=== PATIENT | male | born 1950 | race Caucasian/White ===

== ENCOUNTER → 2020-12-30 09:25 | Outpatient (CLI) | payer MEDICARE, SELFPAY ==
--- NOTE | ~2020-12-30 | XR_ITS ---
EXAMINATION: XR knee LT min 4V DATE: 12/30/2020 09:54 INDICATION: Left knee pain. TECHNIQUE: 4 views of left knee were obtained. COMPARISON: Left knee radiographs 05/02/2020 FINDINGS: There is varus attenuation at the knee. No fracture. There is severe osteoarthritis of medi al compartment and mild osteoarthritis of lateral and patellofemoral compartments. There is a moderat e-sized knee joint effusion. A calcification posterior to the knee is likely a loose body in a Sanchez' s cyst. IMPRESSION: 1. Severe left knee osteoarthritis. 2. Moderate-sized left knee joint effusion. Reviewed, dictated and finalized at location A.
== END ==
PROVIDERS: Visit Provider Nurse Practitioner Adult Health
DX: M17.12 Unilateral primary osteoarthritis, left knee (principal); M25.462 Effusion, left knee
CPT/HCPCS: 73564

== ENCOUNTER 2021-10-15 07:41 | Outpatient (CLI) | payer MEDICARE, SELFPAY ==
--- NOTE | ~2021-10-15 | US_ITS ---
EXAMINATION: US art doppler w press LE BI DATE: 10/15/2021 08:52 INDICATION: Peripheral vascular disease with risk factors of diabetes and and hypercholesterolemia wi th prior strokes and coronary artery disease. TECHNIQUE: Segmental pressures and plethysmographic and Doppler waveforms of the brachial and lower e xtremity arteries were obtained. COMPARISON: None. FINDINGS: Right and left brachial artery pressures of 131 mm Hg and 132 mm Hg, respectively, are concordant (no rmal difference <= 30 mmHg). The right and left high-thigh pressure indices are 1.28 and 1.26, respec tively (normal > 1.2). The right ankle-brachial index (BREANA) is 1.04 (normal >= 0.9-1). The right great toe-brachial index (T BI) is 0.83 (normal >= 0.6-0.8). The right lower extremity segmental pressure gradients are normal (n ormal gradients <= 20-30 mmHg between adjacent levels on the same leg or the same levels on the two l egs). Arterial waveforms are biphasic with brisk systolic upstrokes throughout the arteries of the ri ght lower limb. Cardiac arrhythmia is present. The left BREANA is 0.98. The left TBI is 0.71. The left lower extremity segmental pressure gradients are increased between the arteries at the left ankle and the left epgrd-gks-azip popliteal artery. Arter ial waveforms are biphasic with brisk systolic upstrokes throughout the arteries of the left lower li mb. IMPRESSION: 1. Normal BREANA's and TBI's bilaterally. No significant occlusive disease. 2. Cardiac arrhythmia. Correlate with EKG. Reviewed, dictated and finalized at location B.
== END 2021-10-15 07:42 | disposition home or self-care (01) ==
PROVIDERS: PCP Internal Medicine; Visit Provider Orthopaedic Surgery
DX: I73.9 Peripheral vascular disease, unspecified (principal)
CPT/HCPCS: 93923

== ENCOUNTER 2021-11-12 09:51 | Outpatient (CLI) | payer MEDICARE, SELFPAY ==
[2021-11-12 11:57] LABS: Basophils Percent Auto 0.5 % (0.2-1.2); Eosinophils Absolute Auto 0.1 K/mm3 (0-0.3); Eosinophils Percent Auto 1.6 % (0-4.4); Hematocrit 43.4 % (42.0-52.0); Hemoglobin 14.3 g/dL (14.0-18.0); Immature Granulocyte Absolute 0.02 K/mm3 (0.00-0.031); Immature Granulocyte Percent A 0.2 % (0-0.5); Lymphocytes Absolute Auto 0.83 K/mm3 (0.9-3.2); Lymphocytes Percent Auto 9.5 % (18.3-44.2); Mean Corpuscular HGB Conc 32.9 g/dl (32-36); Mean Platelet Volume 10.3 fl (7.4-10.4); Monocytes Absolute Auto 0.5 K/mm3 (0.1-0.6); Monocytes Percent Auto 5.8 % (2.6-8.5); Neutrophils Absolute Auto 7.2 K/mm3 (1.3-6.7); Neutrophils Percent Auto 82.4 % (45.5-73.1); Platelet Count Result 167 k/mm3 (150-375); Red Blood Count 4.93 M/mm3 (4.6-6.20); Red Cell Distribution Width 14.6 % (11.5-14.5); White Blood Count 8.7 K/mm3 (4.5-10.0)
[2021-11-12 12:00] LABS: Appearance Urine Clear (Clear); Bilirubin Urine Negative (Negative); Blood Urine Negative (Negative); Color Urine Yellow (Yellow); Glucose Urine UA Negative (Negative); Ketones Urine Negative (Negative); Leukocyte Esterase Ur Negative LEU/UL (Negative); Nitrate Urine Negative (Negative); Protein Urine Negative (Negative); Specific Grav Ur 1.015 (1.001-1.035); Urobilinogen Urine 0.2 mg/dL (<2.0)
[2021-11-12 12:05] LABS: Albumin Level 4.5 g/dL (3.5-5.1); Anion Gap 6 mmol/L (8-16); Blood Urea Nitrogen 14 mg/dL (9-20); Calcium 9.1 mg/dL (8.4-10.2); Carbon Dioxide 29 mmol/L (22-30); Chloride 104 mmol/L (98-107); Estimated Glomerular Filt Rate > 60; Glucose 94 mg/dL (65-110); INR 1.1; Potassium 4.3 mmol/L (3.4-5.0); Prothrombin Time 13.9 Seconds (11.1-14.7); Sodium 139 mmol/L (137-145)
[2021-11-12 12:06] LABS: Add Urine Microscopic? NO
[2021-11-12 12:06] LABS: Partial Thromboplastin Time 34.1 SECONDS (22.3-36.8)
[2021-11-12 12:07] LABS: Hemoglobin A1C 5.4 % (<5.7)
[2021-11-12 12:07] LABS: Urine Cotinine NEGATIVE
== END 2021-11-12 09:52 | disposition home or self-care (01) ==
LOC: ANHSURGERY 09:55
PROVIDERS: PCP Internal Medicine; Visit Provider Orthopaedic Surgery
DX: Z01.818 Encounter for other preprocedural examination (principal); M17.11 Unilateral primary osteoarthritis, right knee
CPT/HCPCS: 80048; 80307; 81003; 82040; 83036; 85025; 85610; 85730; 87081

== ENCOUNTER 2021-11-26 00:41 | Day surgery (SDC) | payer MEDICARE, SELFPAY ==
--- NOTE | 2021-11-12 10:00 | PC.NURSE ---
Report to the Outpatient Waiting Room, entrance under the green pavilion located off [facility], at time __9:00am__ on date ___11/26/21____. OR Time: _11:00AM . - You and your visitor will be asked a series of questions to screen for COVID 19 for your protection. - Only one visitor is allowed at this time. - The patient visitor is requested to leave or wait in car when not with patient. - A mask is required within the hospital. Patients may have clear liquids (water, carbonated beverages, clear teas, apple juice) until 3 hours prior to surgery with a maximum of 20 ounces. - No food from midnight until time of surgery Take the following medications with a SIP of water the morning of surgery: _AMLODIPINE, ISOSORBIDE & METOPROLOL Medications to discontinue per physician ___HOLD ASPIRIN -LAST DOSE , HOLD PLAVIX -LAST DOSE 11/21/21, HOLD ALL VITAMINS/SUPPLEMENTS 3 DAYS PRE-OP-LAST DOSE 10/23/21 Please no make-up, nail latvian, hairspray, perfume, deodorant, or body powder the day of surgery. No jewelry (including any body piercings) or valuables the day of surgery, leave them at home. Please take a shower or bath the night before, or the morning of, surgery with an antibacterial soap. Wear comfortable, loose fitting clothing. Children are encouraged to wear pajamas. - Jewelry must be removed prior to entering the operating room. Rings and piercings that are not removed may be cut off. - The hospital will not accept responsibility for valuables. - Please leave all valuables, including medications, at home the day of surgery. *HIBICLENS SHOWER PER DR MELARA'S INSTRUCTIONS* If you are going home after surgery, a licensed hydraulic lift driver must drive you home. - NO public transportation without another adult. - We recommend that an adult stay with you for 24 hours following discharge. - We also recommend that you do not drive, make important decision, drink alcoholic beverages, or take any drugs that were not prescribed by your health care provider for at least 24 hours after your discharge time. Follow any additional instructions given to you from your surgeon. If you or anyone in your household have experienced Covid symptoms in the past week, please notify your surgeon or the nurse liaison at the phone number below for possible testing. Telephone instructions given to __PATIENT and asked if any additional questions and then verbalized understanding. Patient advised to call surgeon office or pre surgery nurse liaison [phone] if any additional questions.
[2021-11-12 10:04] VITALS: BMI 39.4
[2021-11-12 10:25] VITALS: BP 125/85; PULSE 75; RESP 16; TEMP 37.2; O2SAT 98
--- NOTE | 2021-11-25 13:20 | WPDANESEPPF ---
Anes - Initial Pre Proc Eval Procedure: Operation Date: 11/26/21 11:00 Proposed Procedures p Right Total Knee Arthroplasty - Eugene Todd MD Date/Time: 11/25/21 13:20 Surgeon: Eugene Todd MD Pre Op Diagnosis: Rt Knee DJD Patient Data Age: 71 Gender: M Height: 1.68 m Weight: 111.5 kg Last Vital Signs Temp 37.2 C 11/12/21 10:25 Pulse 75 11/12/21 10:25 Resp 16 11/12/21 10:25 BP 125/85 11/12/21 10:25 Pulse Ox 98 11/12/21 10:25 O2 Del Method Room Air 11/12/21 10:25 Allergies Allergy/AdvReac Type Severity Reaction Status Date / Time No Known Allergies Allergy Mild Verified 11/26/21 09:07 Home Medications Medication Instructions Recorded Confirmed Type amlodipine 10 mg tablet 10 mg PO QAM 10/29/20 11/26/21 History aspirin 325 mg tablet 325 mg PO DAILY 10/29/20 11/26/21 History clopidogrel 75 mg tablet 75 mg PO DAILY 10/29/20 11/12/21 History dulaglutide 1.5 mg/0.5 mL 1.5 mg subcut WEEKLY 10/29/20 11/26/21 History subcutaneous pen injector (Trulicity) ergocalciferol (vitamin D2) 1,250 1,250 mcg PO WEEKLY 10/29/20 11/26/21 History mcg (50,000 unit) capsule furosemide 20 mg tablet 20 mg PO QAM 10/29/20 11/26/21 History glimepiride 4 mg tablet 2 mg PO QPM 10/29/20 11/26/21 History isosorbide mononitrate 60 mg 60 mg PO QAM 10/29/20 11/26/21 History tablet,extended release 24 hr losartan 100 mg tablet 100 mg PO QAM 10/29/20 11/26/21 History metoprolol succinate 100 mg 100 mg PO QAM 10/29/20 11/26/21 History tablet,extended release 24 hr multivitamin 1 tablet PO DAILY 10/29/20 11/26/21 History omeprazole 20 mg capsule,delayed 20 mg PO QAM 10/29/20 11/26/21 History release rosuvastatin 40 mg tablet 40 mg PO QAM 10/29/20 11/26/21 History icosapent ethyl 1 gram capsule 2 g PO BID 06/12/21 11/26/21 History vitamin B complex (B 1 tablet PO DAILY 06/12/21 11/26/21 History Complex-Vitamin B12 tablet) docusate sodium 100 mg capsule 100 mg PO TID 11/12/21 11/26/21 History (Stool Softener) vitamin E 268 mg (400 unit) capsule 400 unit PO DAILY 11/12/21 11/26/21 History Patient hx anesthesia problems: none Family hx anesthesia problems: none Results Review: All pre-operative results and documents have been reviewed as part of the pre-operative evaluation. [facility] Past Medical History Medical History (Updated 11/25/21 @ 13:26 by Yakov Gordon MD) Arterial insufficiency of lower extremity Arthritis CAD (coronary artery disease) CHF (congestive heart failure) Chronic narcotic use Constipation COPD (chronic obstructive pulmonary disease) Diabetes Diarrhea GERD (gastroesophageal reflux disease) Hearing loss Heart attack Hemoglobin A1C between 7% and 9% indicating borderline diabetic control September 2020 = 7.8 High cholesterol Hyperlipidemia Low back pain GRIFFIN on CPAP Pain in left knee Rheumatoid arthritis Sleep apnea Sleep disorder Ulcer Wears glasses Surgical History Surgical History History of bilateral hip replacements History of colon surgery History of heart artery stent History of shoulder surgery Dr. Prado History of spinal surgery Family History Family History Other Asthma Diabetes mellitus Hypertension Social History Social History Smoking packs per day: 2 Smoking cigarettes per day: 40.0 Years smoked: 40 Smoking pack-years: 80.00 Smoking status: Former smoker Tobacco type: cigarettes Smoking end date: 11/21/09 Alcohol intake: current Alcohol use details: 6 pk in a years time Substance use: never Living arrangements: alone Gender identity (if verbalized by the patient): Male Spiritual care concerns: No Anes - Eval Final PreProcedure Day of Procedure 11/25/21 13:20 Patient weight: obese Heart: regular rate and rhythm Lungs: clear t
[2021-11-26] VITALS (17 sets, daily range): BP systolic 102–146; BP diastolic 52–75; PULSE 50–106; RESP 14–18; TEMP 36.3–37.1; O2SAT 94–100
--- NOTE | ~2021-11-26 | XR_ITS ---
EXAMINATION: XR knee RT 2V DATE: 11/26/2021 13:05 INDICATION: Postoperative evaluation following right total knee arthroplasty. TECHNIQUE: Anteroposterior and lateral views of the right knee were obtained. COMPARISON: 10/02/2021 FINDINGS: Right total knee arthroplasty without patellar resurfacing appears well seated and in near anatomic a lignment. No fractures identified. Skin tor and expected postoperative subcutaneous, intramedul brandy and intra-articular gas. There are atherosclerotic calcifications along the popliteal and distal femoral arteries. IMPRESSION: 1. Right total knee arthroplasty, negative for postoperative purposes. Reviewed, dictated and finalized at location A.
[2021-11-26] MEDS: ACETAMINOPHEN 500 MG TABLET 1000 MG PO (09:23)
[2021-11-26] MEDS: LACTATED RINGERS 1,000 ML 30 ML IV CONT ×2 (09:50→12:46)
[2021-11-26 09:59] LABS: Glucose Point of Care 95 mg/dl (65-105)
--- NOTE | 2021-11-26 10:02 | WPDHPUPDATE1 ---
History and Physical Update Update Date/Time: 11/26/21 10:02 History and Physical has been reviewed, including an updated exam of the patient. There are NO changes in the patient's condition. Risks, benefits, and alternatives have been discussed and questions answered. Patient agrees to proceed with procedure.
[2021-11-26] MEDS: TRANEXAMIC ACID 1,000MG/ISO100 1,000 MG/100 ML BAG 200 MG IVPB (10:08)
--- NOTE | 2021-11-26 10:21 | WPDANESPNB ---
Anes - Peripheral Nerve Block Date/Time: 11/26/21 10:21 I have discussed with the patient/family/POA the placement of a peripheral nerve block for post-operative pain management, including associated risks, benefits, complications, and side effects. Alternative methods of post-operative analgesia were detailed. Questions were solicited and answers provided to the satisfaction of the patient/family/POA. Time-Out: A pre-procedural Time-Out was completed immediately before starting the procedure and confirmed: Patient Identification, Site, Procedure, Patient Position and the Availability of Requisite Equipment. Clinical Indications: Acute post-operative pain management requested by the operative surgeon. Nerve Block Insertion Note Anes-nerve block: adductor canal right Patient position: supine Skin prep: chlorhexidine Needle: 22 gauge, stimulating, insulated echogenic needle. Needle length: 80 mm Technique: ultrasound Technique comment: in plane Injectate: bupivacaine 0.5% with epi 5 mcg/ml (30cc) Observations: tolerated well Complications: none Procedure start time:: 1010 Procedure end time:: 1015
[2021-11-26] MEDS: ceFAZolin 2 GM/D5W 50 ML 2 GM/50 ML BAG IVPB ×2 (10:30→17:47)
[2021-11-26 12:52] LABS: Glucose Point of Care 103 mg/dl (65-105)
--- NOTE | 2021-11-26 12:53 | W.PM.PROC2 ---
Procedure Note - Detailed Date of Procedure 11/26/21 Pre-op Diagnosis Rt Knee DJD Post-op Diagnosis Same Procedure Performed R TKA Surgeon Eugene Todd MD Anesthesia General Description of Procedure THE RIGHT KNEE WAS PREPPED AND DRAPED IN THE STERILE FASHION. THERE WAS A 10 DEGREE FLEXION CONTRACTURE. A MIDLINE SKIN INCISION WAS MADE. A MEDIAL PARAPATELLAR ARTHROTOMY WAS MADE. THE PATELLA WAS EVERTED. THERE WAS TRICOMPARTMENT DJD. AN INTRAMEDULLARY BRENT WAS PLACED IN THE FEMUR. A DISTAL FEMORAL CUT WAS MADE IN 5 DEGREES OF VALGUS REMOVING APPROXIMATELY 9 MM OF BONE FROM THE DISTAL FEMUR. THE FEMUR WAS SIZED TO 67.5. A 67.5 FEMORAL CUTTING BLOCK WAS PLACED IN 3 DEGREES OF EXTERNAL ROTATION AND IN ALIGNMENT WITH HECTOR'S LINE AND THE TRANSEPICONDYLAR AXIS. ANTERIOR POSTERIOR AND CHAMFER CUTS WERE MADE. THE CUTS WERE EXCELLENT. NEXT AN INTRAMEDULLARY CUTTING GUIDE WAS PLACED IN THE TIBIA. A TRANS TIBIAL CUT WAS MADE ALONG THE LONG AXIS OF THE TIBIA. APPROXIMATELY 10 MM OF BONE WAS REMOVED FROM THE HIGH SIDE OF THE TIBIA. THE TIBIA WAS THEN PLANED TO A SMOOTH SURFACE. POSTERIOR FEMORAL OSTEOPHYTES WERE REMOVED FROM THE FEMORAL CONDYLES. A 79 TIBIAL TRIAL WAS PLACED IN ALIGNMENT WITH THE 1/3 MEDIAL ASPECT OF THE TIBIAL TUBERCLE. THEN A 67.5 FEMORAL TRIAL COMPONENT WAS PLACED. BOTH HAD EXCELLENT FITS. EVENTUALLY A 10 MM CR POLYETHYLENE TRIAL COMPONENT WAS PLACED. THE KNEE WAS TAKEN THROUGH A RANGE OF MOTION. THE KNEE CAME OUT TO FULL EXTENSION. THERE WAS NO ABNORMAL TILT TO THE PATELLA. THERE WAS GOOD A/P AND VARUS/VALGUS STABILITY. THERE WAS NO EXCESSIVE ROLL BACK WITH FLEXION. THE TRIAL COMPONENTS WERE REMOVED. THEN A 67.5 FEMORAL COMPONENT AND 79 TIBIAL COMPONENT WITH A 10 CR POLYETHYLENE COMPONENT WERE CEMENTED INTO PLACE. ONCE THE CEMENT WAS HARD THE KNEE WAS TAKEN THROUGH A ROM AGAIN AND FOUND TO BE STABLE WITH NO PATELLA TILT NO EXCESSIVE ROLL BACK WITH FLEXION AND GOOD STABILITY WITH COMPLETE AND FULL EXTENSION. THE KNEE WAS IRRIGATED WITH STERILE BETADINE AND WATER FOR ABOUT 3 MINUTES. THE BLEEDERS WERE CAUTERIZED. THE ARTHROTOMY WAS REPAIRED WITH NUMBER 1 VICRYL. THE SUB CUTANEOUS LAYER WITH 2-0 VICRYL AND THE SKIN WITH TR. THE WOUND WAS WASHED AND A STERILE DRESSING WAS APPLIED. PATIENT WAS EXTUBATED. Estimated Blood Loss -150 Pathology None sent Complications No immediate complications Condition Stable Disposition PACU
[2021-11-26] MEDS: fentaNYL CITRATE INJ (*CRX) 100 MCG/2 ML VIAL 25 MCG IV PUSH ×7 (12:56→14:54)
--- NOTE | 2021-11-26 14:19 | SUR.PHASEI ---
Patient has met criteria to go to the floor. There is no bed available at this time so he is going to outpatient to be watched and visit with daughter.
--- NOTE | 2021-11-26 17:08 | ADMGEN ---
This patient, Chris Matthews, was admitted to Medical Room 256-01. Patient/family oriented to hospital policies and general routines including ID bracelet, bed and alarms, visiting hours, pain management, procedures, bathroom and other care routines, personal items, smoking policy, room service/diet, and visiting hours. Information on how to activate the Rapid Response Team has been discussed. Patient/Family are encouraged to report perceived risks to care and to ask questions if they do not understand what they are told or what they should do.
[2021-11-26] MEDS: SODIUM CHLORIDE 0.9% IV 1,000 ML 125 ML IV CONT (17:43)
[2021-11-26] MEDS: oxyCODONE/ACETAMINOPHEN (*CRX) 5-325 MG TABLET 2 TABLET PO (17:45)
[2021-11-26] MEDS: OMEGA 3 POLYUNSAT FATTY ACIDS 1 GM CAP 2 GM PO (17:46)
[2021-11-26] MEDS: SENNA/DOCUSATE SODIUM TABLET 2 TAB PO (17:46)
[2021-11-26] MEDS: DOCUSATE SODIUM 100 MG CAPSULE PO (17:46)
[2021-11-26] MEDS: GLIMEPIRIDE 2 MG TABLET PO (17:46)
[2021-11-26] MEDS: CELECOXIB 200 MG CAPSULE PO (17:47)
[2021-11-26] MEDS: oxyCODONE/ACETAMINOPHEN (*CRX) 5-325 MG TABLET 1 TABLET PO (21:04)
[2021-11-26 21:15] LABS: Glucose Point of Care 118 mg/dl (65-105)
[2021-11-27] VITALS (8 sets, daily range): BP systolic 120–160; BP diastolic 55–88; PULSE 62–106; RESP 12–18; TEMP 36.1–36.9; O2SAT 95–98
[2021-11-27] MEDS: ceFAZolin 2 GM/D5W 50 ML 2 GM/50 ML BAG IVPB ×2 (01:46→09:59)
[2021-11-27] MEDS: oxyCODONE/ACETAMINOPHEN (*CRX) 5-325 MG TABLET 2 TABLET PO ×2 (01:55→20:24)
[2021-11-27] MEDS: oxyCODONE/ACETAMINOPHEN (*CRX) 5-325 MG TABLET 1 TABLET PO ×4 (06:01→18:58)
[2021-11-27 06:14] LABS: Basophils Percent Auto 0.3 % (0.2-1.2); Eosinophils Absolute Auto 0.3 K/mm3 (0-0.3); Eosinophils Percent Auto 2.7 % (0-4.4); Hematocrit 36.3 % (42.0-52.0); Hemoglobin 12.2 g/dL (14.0-18.0); Immature Granulocyte Absolute 0.03 K/mm3 (0.00-0.031); Immature Granulocyte Percent A 0.3 % (0-0.5); Lymphocytes Absolute Auto 1.61 K/mm3 (0.9-3.2); Lymphocytes Percent Auto 16.7 % (18.3-44.2); Mean Corpuscular HGB Conc 33.6 g/dl (32-36); Mean Corpuscular Volume 86.2 fl (80-100); Mean Platelet Volume 10.1 fl (7.4-10.4); Monocytes Absolute Auto 0.6 K/mm3 (0.1-0.6); Monocytes Percent Auto 6.4 % (2.6-8.5); Neutrophils Absolute Auto 7.1 K/mm3 (1.3-6.7); Neutrophils Percent Auto 73.6 % (45.5-73.1); Platelet Count Result 188 k/mm3 (150-375); Red Blood Count 4.21 M/mm3 (4.6-6.20); White Blood Count 9.7 K/mm3 (4.5-10.0)
[2021-11-27 06:30] LABS: Anion Gap 2 mmol/L (8-16); Blood Urea Nitrogen 13 mg/dL (9-20); Calcium 8.2 mg/dL (8.4-10.2); Carbon Dioxide 27 mmol/L (22-30); Chloride 109 mmol/L (98-107); Estimated CRCL calculation 99 ml/min; Estimated Glomerular Filt Rate > 60; Glucose 97 mg/dL (65-110); Sodium 138 mmol/L (137-145)
[2021-11-27 08:02] LABS: Glucose Point of Care 129 mg/dl (65-105)
--- NOTE | 2021-11-27 08:45 | WPDANESPN ---
Anes - Prog Note Post-Op Date/Time: 11/27/21 08:45 Vital Signs: Last Vital Signs Temp 36.9 C 11/27/21 05:43 Pulse 102 H 11/27/21 05:43 Resp 12 11/27/21 05:43 BP 124/61 11/27/21 05:43 Pulse Ox 95 11/27/21 05:43 O2 Del Method Room Air 11/27/21 07:20 O2 Flow Rate 2 11/26/21 14:15 Pain Score (VAS): 0 I/O: Intake & Output 11/26/21 11/27/21 11/27/21 23:59 07:59 15:59 Intake Total 1270 350 240 Output Total 925 875 Balance 345 -525 240 Laboratory Tests 11/27/21 05:33 11/27/21 05:33 11/26/21 11/26/21 11/26/21 08:58 09:56 12:49 WBC RBC Hgb Hct MCV MCH MCHC RDW Plt Count MPV Immature Gran % (Auto) Neut % (Auto) Lymph % (Auto) [place] % (Auto) Eos % (Auto) Baso % (Auto) Lymph # (Auto) [place] # (Auto) Eos # (Auto) Baso # (Auto) Abs Immat Gran (auto) Absolute Neuts (auto) Absolute Nucleated RBC Nucleated RBC % Sodium Potassium Chloride Carbon Dioxide Anion Gap BUN Creatinine Estim Creat Clear Calc Estimated GFR Glucose POC Capillary Glucose 95 103 Calcium Blood Type O Positive Antibody Screen Negative 11/26/21 11/27/21 11/27/21 20:53 05:33 05:33 WBC 9.7 RBC 4.21 L Hgb 12.2 L Hct 36.3 L MCV 86.2 MCH 29.0 MCHC 33.6 RDW 15.0 H Plt Count 188 MPV 10.1 Immature Gran % (Auto) 0.3 Neut % (Auto) 73.6 H Lymph % (Auto) 16.7 L [place] % (Auto) 6.4 Eos % (Auto) 2.7 Baso % (Auto) 0.3 Lymph # (Auto) 1.61 [place] # (Auto) 0.6 Eos # (Auto) 0.3 Baso # (Auto) 0.0 Abs Immat Gran (auto) 0.03 Absolute Neuts (auto) 7.1 H Absolute Nucleated RBC 0.0 Nucleated RBC % 0.0 Sodium 138 Potassium 4.0 Chloride 109 H Carbon Dioxide 27 Anion Gap 2 L BUN 13 Creatinine 0.70 Estim Creat Clear Calc 99 Estimated GFR > 60 Glucose 97 POC Capillary Glucose 118 H Calcium 8.2 L Blood Type Antibody Screen 11/27/21 07:59 WBC RBC Hgb Hct MCV MCH MCHC RDW Plt Count MPV Immature Gran % (Auto) Neut % (Auto) Lymph % (Auto) [place] % (Auto) Eos % (Auto) Baso % (Auto) Lymph # (Auto) [place] # (Auto) Eos # (Auto) Baso # (Auto) Abs Immat Gran (auto) Absolute Neuts (auto) Absolute Nucleated RBC Nucleated RBC % Sodium Potassium Chloride Carbon Dioxide Anion Gap BUN Creatinine Estim Creat Clear Calc Estimated GFR Glucose POC Capillary Glucose 129 H Calcium Blood Type Antibody Screen Patient Feedback: Patient satisfied with anesthetic care.
--- NOTE | 2021-11-27 09:15 | P.CONIM_ITS ---
Assessment and Plan Assessment and plan (1) Status post total right knee replacement: Code(s): Z96.651 - Presence of right artificial knee joint Status: Acute Assessment and Plan: * POD 1 * Post op care per ortho * Pain medications: Oxycodone 5mg 1-2 tabs PO Q4-6H PRN * Cefazolin X3 bags * Bowel: Miralax and Senna * Ice pack * DVT Aspirin 325mg * PT/OT (2) Right knee DJD: Code(s): M17.11 - Unilateral primary osteoarthritis, right knee Status: Acute Assessment and Plan: * See above * Status Post TKA (3) Diabetes: Code(s): E11.9 - Type 2 diabetes mellitus without complications Status: Acute Assessment and Plan: * Current glucose 97 * A1c 5.4 * Continue home glimepiride, insulin sliding scale * Accu Cheks achs * hypoglycemia protocol * Trend glucose * Adjust therapy as indicated (4) GRIFFIN on CPAP: Code(s): G47.33 - Obstructive sleep apnea (adult) (pediatric); Z99.89 - Dependence on other enabling machines and devices Status: Acute Assessment and Plan: * Continue home CPAP with home settings (5) COPD (chronic obstructive pulmonary disease): Code(s): J44.9 - Chronic obstructive pulmonary disease, unspecified Status: Acute Assessment and Plan: * Controlled at this time * Respiratory status stable with saturation of 94-97 on room air * No acute exacerbation noted * Continue to trend respiratory status * Adjust therapy as indicated (6) Hyperlipidemia: Code(s): E78.5 - Hyperlipidemia, unspecified Status: Acute Assessment and Plan: * Continue home rosuvastatin * Check LFTs if still in here in the ED (7) Hypertension: Code(s): I10 - Essential (primary) hypertension Status: Acute Assessment and Plan: * BP stable at 124/61 * Continue home antihypertensives * Trend blood pressure * Adjust therapy as indicated (8) CAD (coronary artery disease): Code(s): I25.10 - Atherosclerotic heart disease of [place] coronary artery without angina pectoris Status: Acute Assessment and Plan: * Continue aspirin plavix and statin * Remain stable at this time * No complaints of chest pain Plan Thank you for allowing us to be a part of this case please call with any questions HPI Data of Consult Consult date: 11/27/21 Requesting Physician: Eugene Todd MD Primary Care Provider: Homer Plummer, Consult Narrative Reason for consult: Medical management Narrative: 11/27/2021 at 915 Chris Matthews is a 71 year old male with a past medical history of diabetes, HTN, CAD, CHF who is here for an elective TKR of the right knee with Dr. Todd on 11/26/21. Currently patient is doing ok. He is experiencing some pain, however seems to be controlled at this time. He does say that his pain goes up with activity and working with PT and OT. He also was complaining the chairs little hard however he does get comfortable but it is not related to his knee. Patient stated that he usually goes to the bathroom in the a.m. however via not done that today. He denies any chest pain, shortness her breath, nausea, vomiting, diarrhea, constipation, weakness or fatigue, the changes, hearing monster nges, headache. He is eating and feels okay. He stated that he feels comfo
--- NOTE | 2021-11-27 09:15 | PM.IMCN ---
Assessment and Plan Assessment and plan (1) Status post total right knee replacement: Code(s): Z96.651 - Presence of right artificial knee joint Status: Acute Assessment and Plan: POD 1 Post op care per ortho Pain medications: Oxycodone 5mg 1-2 tabs PO Q4-6H PRN Cefazolin X3 bags Bowel: Miralax and Senna Ice pack DVT Aspirin 325mg PT/OT (2) Right knee DJD: Code(s): M17.11 - Unilateral primary osteoarthritis, right knee Status: Acute Assessment and Plan: See above Status Post TKA (3) Diabetes: Code(s): E11.9 - Type 2 diabetes mellitus without complications Status: Acute Assessment and Plan: Current glucose 97 A1c 5.4 Continue home glimepiride, insulin sliding scale Accu Cheks achs hypoglycemia protocol Trend glucose Adjust therapy as indicated (4) GRIFFIN on CPAP: Code(s): G47.33 - Obstructive sleep apnea (adult) (pediatric); Z99.89 - Dependence on other enabling machines and devices Status: Acute Assessment and Plan: Continue home CPAP with home settings (5) COPD (chronic obstructive pulmonary disease): Code(s): J44.9 - Chronic obstructive pulmonary disease, unspecified Status: Acute Assessment and Plan: Controlled at this time Respiratory status stable with saturation of 94-97 on room air No acute exacerbation noted Continue to trend respiratory status Adjust therapy as indicated (6) Hyperlipidemia: Code(s): E78.5 - Hyperlipidemia, unspecified Status: Acute Assessment and Plan: Continue home rosuvastatin Check LFTs if still in here in the ED (7) Hypertension: Code(s): I10 - Essential (primary) hypertension Status: Acute Assessment and Plan: BP stable at 124/61 Continue home antihypertensives Trend blood pressure Adjust therapy as indicated (8) CAD (coronary artery disease): Code(s): I25.10 - Atherosclerotic heart disease of [place] coronary artery without angina pectoris Status: Acute Assessment and Plan: Continue aspirin plavix and statin Remain stable at this time No complaints of chest pain Plan Thank you for allowing us to be a part of this case please call with any questions HPI Data of Consult Consult date: 11/27/21 Requesting Physician: Eugene Todd MD Primary Care Provider: Homer PlummerMD Consult Narrative Reason for consult: Medical management Narrative: 11/27/2021 at 915 Chris Matthews is a 71 year old male with a past medical history of diabetes, HTN, CAD, CHF who is here for an elective TKR of the right knee with Dr. Todd on 11/26/21. Currently patient is doing ok. He is experiencing some pain, however seems to be controlled at this time. He does say that his pain goes up with activity and working with PT and OT. He also was complaining the chairs little hard however he does get comfortable but it is not related to his knee. Patient stated that he usually goes to the bathroom in the a.m. however via not done that today. He denies any chest pain, shortness her breath, nausea, vomiting, diarrhea, constipation, weakness or fatigue, the changes, hearing changes, headache. He is eating and feels okay. He stated that he feels comfortable going home today and that his daughter is a nurse is going how to take care of him. Patient appears stable for discharge on the medical side as well. Patient is a consult to the hospitalist service at this time Review of Systems Review of Systems: All systems reviewed & are unremarkable except as noted in HPI and below PMFSH Past Medical History Medical History Arterial insufficiency of lower extremity Arthritis CAD (coronary artery disease) CHF (congestive heart failure) Chronic narcotic use Constipation
--- NOTE | 2021-11-27 09:41 | PM.PNORT ---
Progress Note: A&P Assessment and Plan (1) Status post total right knee replacement: Code(s): Z96.651 - Presence of right artificial knee joint Status: Acute Assessment and Plan: POD #1 : RIGHT TKA Continue PT/OT. WBAT. Walker. HIGH FALL RISK. Continue pain control. Ice knee. Protect skin. DVT prophylaxis with resume Aspirin/Plavix. SCDs. Incentive Spirometry Use reviewed. Monitor Dressing. Change prior to discharge. Bowel Regimen. Dispo: Home with Home Health pending progress with PT/OT Plan Reviewed postop radiographs, labs, vitals and exam with Dr. Todd. No further recommendations at this time. Subjective Subjective Date/Time Seen: 11/27/21 09:41 Post Op day: 1 Principal diagnosis: Right Knee DJD Interval history: POD #1: Right TKA Patient doing well. Working well with PT/OT. Hopeful for discharge home today. Review of Systems Review of Systems: All systems reviewed & are unremarkable except as noted in HPI and below Constitutional: Constitutional: Denies fever(s) and Denies headache(s) ENT: Denies headache(s) Cardiovascular: Cardiovascular: Denies chest pain, Denies diaphoresis, Denies palpitations and Denies dyspnea Respiratory: Respiratory: Denies dyspnea Gastrointestinal: Gastrointestinal: Denies abdominal pain, Denies constipation, Denies nausea and Denies vomiting Genitourinary: Genitourinary: Denies dysuria and Reports nocturia Musculoskeletal: Musculoskeletal: Reports arthralgias (Right Knee ) and Reports joint swelling (Right Knee ) Neurologic: Denies headache(s) Endocrine: Endocrine: Denies palpitations Exam Const: General: comfortable and no acute distress Resp: Effort & Inspection: normal respiratory effort Cardio: Rate: regular rate Rhythm: regular rhythm GI: GI Palp: Yes Soft to palpation, No Tenderness to palpation present (GI) and No Guarding due to palpation present (GI) Skin: Wounds: wounds noted Other: Incision c/d/i. No surrounding redness/warmth. No hematoma. Mild ecchymosis. No wound dehiscence Neuro: Cognition (Neuro): normal cognition Other: NV intact aside from block. Moves toes. Sensation intact to light touch. +ankle dorsiflexion/plantarflexion. Extrem: Right lower extremity: normal to inspection, knee Details: tenderness (diffuse, mild ) Location: of the patella, swelling (diffuse, consistent with surgical intervention ), abnormal ROM Details: pain with active ROM during, pain with passive ROM during and with range as follows (limited due to recent surgical intervention ); able to extend lower leg actively and ecchymosis (mild ), lower leg (Negative Nohemy's Sign ) Details: normal to inspection; no erythema and no tenderness, ankle (+ankle dorsiflexion/plantarflexion ) Details: normal to inspection, no edema and normal ROM; no tenderness, no swelling and no ecchymosis and foot Details: normal capillary refill, normal to inspection, vascular exam Details: dorsalis pedis pulse present and motor-sensory exam Details: light-touch normal; no tenderness Left lower extremity: normal to inspection Psych: Mental Status: mental status grossly normal Objective Data Vital Signs Vital Signs: Vital Signs - 24 hr 11/26/21 12:46 11/26/21 13:00 11/26/21 13:15 Temperature 37.1 C Pulse Rate 77 67 64 Respiratory Rate 18 18 16 Blood Pressure 127/64 130/63 135/71 Pulse Oximetry 100 96 94 Oxygen Delivery Simple Face Mask Room Air Room Air Oxygen Flow Rate 6 11/26/21 13:30 11/26/21 13:45 11/26/21 14:00 Temperature Pulse Rate 60 66 61 Respiratory Rate 14 18 Blood Pressure 133/61 119/67 139/63 Pulse Oximetry 99 100 100 Oxygen Delivery Room Air Nasal Cannula Nasal Cannula Oxygen Flow Rate 2 2 11/26/21 14:15 11/26/21 14:45 11/26/21 15:15 Temperature 36.8 C Pulse Rate 65 95 54 L Respiratory Rate 18 18 18 Blood Pressure 102/75 135/61 136/73 Pulse Oximetry 100 Oxygen Delivery Nasal Cannula Room Air Room Air Oxygen Flow
--- NOTE | 2021-11-27 09:58 | PC.NURSE ---
call to pharmacy for missing meds, no a.m meds available at this time, pain pill administered
[2021-11-27] MEDS: CLOPIDOGREL BISULFATE 75 MG TABLET PO (11:03)
[2021-11-27] MEDS: ASPIRIN 325 MG TABLET PO (11:03)
[2021-11-27] MEDS: VITAMIN B COMPLEX CAPSULE 1 CAP PO (11:03)
[2021-11-27] MEDS: SENNA/DOCUSATE SODIUM TABLET 2 TAB PO ×2 (11:03→17:53)
[2021-11-27] MEDS: CELECOXIB 200 MG CAPSULE PO ×2 (11:04→17:55)
[2021-11-27] MEDS: ISOSORBIDE MONONITRATE 60 MG TAB.ER.24H PO (11:04)
[2021-11-27] MEDS: LOSARTAN POTASSIUM 100 MG TABLET PO (11:04)
[2021-11-27] MEDS: amLODIPine BESYLATE 5 MG TABLET 10 MG PO (11:04)
[2021-11-27] MEDS: OMEGA 3 POLYUNSAT FATTY ACIDS 1 GM CAP 2 GM PO ×2 (11:04→17:53)
[2021-11-27] MEDS: METOPROLOL SUCCINATE EXT REL 100 MG TABCR PO (11:04)
[2021-11-27] MEDS: MULTIVITAMINS THERAPEUTIC TAB (*BKC) 1 TABLET PO (11:04)
[2021-11-27] MEDS: PANTOPRAZOLE 40 MG TABLET PO (11:05)
[2021-11-27] MEDS: VITAMIN E 400 UNIT CAPSULE PO (11:05)
[2021-11-27] MEDS: ROSUVASTATIN 10 MG TABLET 40 MG PO (11:05)
[2021-11-27] MEDS: FUROSEMIDE 20 MG TABLET PO (11:05)
[2021-11-27 11:44] LABS: Glucose Point of Care 80 mg/dl (65-105)
--- NOTE | 2021-11-27 13:55 | PCNSR ---
On 11/27/21, the student, Lorna Bustos, provided care and completed [facility] documentation on this patient. I have reviewed the student's documentation and agree with the findings.
[2021-11-27 16:10] LABS: Glucose Point of Care 99 mg/dl (65-105)
[2021-11-27] MEDS: DOCUSATE SODIUM 100 MG CAPSULE PO (17:53)
[2021-11-27] MEDS: GLIMEPIRIDE 2 MG TABLET PO (17:56)
[2021-11-27 21:03] LABS: Glucose Point of Care 98 mg/dl (65-105)
[2021-11-28 05:33] VITALS: BP 122/58; PULSE 60; RESP 16; TEMP 36.4; O2SAT 99
[2021-11-28] MEDS: oxyCODONE/ACETAMINOPHEN (*CRX) 5-325 MG TABLET 1 TABLET PO (05:37)
[2021-11-28 07:38] LABS: Glucose Point of Care 122 mg/dl (65-105)
[2021-11-28] MEDS: OMEGA 3 POLYUNSAT FATTY ACIDS 1 GM CAP 2 GM PO (08:10)
[2021-11-28] MEDS: CLOPIDOGREL BISULFATE 75 MG TABLET PO (08:13)
[2021-11-28] MEDS: PANTOPRAZOLE 40 MG TABLET PO (08:13)
[2021-11-28] MEDS: polyethylene glycoL 3350 17 GM POWD.PACK PO (08:13)
[2021-11-28] MEDS: CELECOXIB 200 MG CAPSULE PO (08:13)
[2021-11-28] MEDS: LOSARTAN POTASSIUM 100 MG TABLET PO (08:13)
[2021-11-28] MEDS: DOCUSATE SODIUM 100 MG CAPSULE PO ×2 (08:14→12:33)
[2021-11-28 08:15] VITALS: PULSE 76; RESP 18; O2SAT 94
[2021-11-28] MEDS: amLODIPine BESYLATE 5 MG TABLET 10 MG PO (08:15)
[2021-11-28] MEDS: METOPROLOL SUCCINATE EXT REL 100 MG TABCR PO (08:16)
[2021-11-28] MEDS: ASPIRIN 325 MG TABLET PO (08:16)
[2021-11-28] MEDS: ROSUVASTATIN 10 MG TABLET 40 MG PO (08:16)
[2021-11-28] MEDS: ISOSORBIDE MONONITRATE 60 MG TAB.ER.24H PO (08:17)
[2021-11-28] MEDS: VITAMIN E 400 UNIT CAPSULE PO (08:17)
[2021-11-28] MEDS: SENNA/DOCUSATE SODIUM TABLET 2 TAB PO (08:18)
[2021-11-28] MEDS: MULTIVITAMINS THERAPEUTIC TAB (*BKC) 1 TABLET PO (08:18)
[2021-11-28] MEDS: FUROSEMIDE 20 MG TABLET PO (08:18)
[2021-11-28] MEDS: VITAMIN B COMPLEX CAPSULE 1 CAP PO (08:18)
--- NOTE | 2021-11-28 09:30 | P.PNIM_ITS ---
Progress Note: A&P Assessment and Plan (1) Status post total right knee replacement: Code(s): Z96.651 - Presence of right artificial knee joint Status: Acute Assessment and Plan: * POD 2 * Post op care per ortho * Pain medications: Oxycodone 5mg 1-2 tabs PO Q4-6H PRN * Cefazolin X3 bags * Bowel: Miralax and Senna * Ice pack * DVT Aspirin 325mg * Give one dose of toradol * PT/OT (2) Right knee DJD: Code(s): M17.11 - Unilateral primary osteoarthritis, right knee Status: Acute Assessment and Plan: * See above * Status Post TKA (3) Diabetes: Code(s): E11.9 - Type 2 diabetes mellitus without complications Status: Acute Assessment and Plan: * Current glucose 98 * A1c 5.4 * Continue home glimepiride, insulin sliding scale * Accu Cheks achs * hypoglycemia protocol * Trend glucose * Adjust therapy as indicated (4) GRIFFIN on CPAP: Code(s): G47.33 - Obstructive sleep apnea (adult) (pediatric); Z99.89 - Dependence on other enabling machines and devices Status: Acute Assessment and Plan: * Continue home CPAP with home settings (5) COPD (chronic obstructive pulmonary disease): Code(s): J44.9 - Chronic obstructive pulmonary disease, unspecified Status: Acute Assessment and Plan: * Controlled at this time * Respiratory status stable with saturation of 94-97 on room air * No acute exacerbation noted * Continue to trend respiratory status * Adjust therapy as indicated (6) Hyperlipidemia: Code(s): E78.5 - Hyperlipidemia, unspecified Status: Acute Assessment and Plan: * Continue home rosuvastatin * Check LFTs if still in here in the ED (7) Hypertension: Code(s): I10 - Essential (primary) hypertension Status: Acute Assessment and Plan: * BP stable at 122/58 * Continue home antihypertensives * Trend blood pressure * Adjust therapy as indicated (8) CAD (coronary artery disease): Code(s): I25.10 - Atherosclerotic heart disease of [place] coronary artery without angina pectoris Status: Acute Assessment and Plan: * Continue aspirin plavix and statin * Remain stable at this time * No complaints of chest pain Time Spent With Patient Time with patient: Greater than 35 minutes Subjective Date/time seen: 11/28/21 0930 Interval history: 11/28/21 Patient is doing ok today. He is still wanting to go home. He is seeming to do well with therapy. He denies chest pain, shortness of breath, nausea, vomiting diarrhea, constipation. His pain is currently 8/10. Patient stated that his pain is been more of a problem than anything. He denies any further complaints. He is ready to go home. He stated that he feels he is capable and able to do this at home. 11/27/2021 0915 Chris Matthews is a 71 year old male with a past medical history of diabetes, HTN, CAD, CHF who is here for an elective TKR of the right knee with Dr. Todd on 11/26/21.? Currently patient is doing ok.? He is experiencing some pain, however seems to be controlled at this time.? He does say that his pain goes up with activity and working with PT and OT.? He also was complaining the chairs little hard however he does get comfortable but it is not related to his knee.? Patient stated that he usually goes to the
--- NOTE | 2021-11-28 09:30 | PM.IMPN ---
Progress Note: A&P Assessment and Plan (1) Status post total right knee replacement: Code(s): Z96.651 - Presence of right artificial knee joint Status: Acute Assessment and Plan: POD 2 Post op care per ortho Pain medications: Oxycodone 5mg 1-2 tabs PO Q4-6H PRN Cefazolin X3 bags Bowel: Miralax and Senna Ice pack DVT Aspirin 325mg Give one dose of toradol PT/OT (2) Right knee DJD: Code(s): M17.11 - Unilateral primary osteoarthritis, right knee Status: Acute Assessment and Plan: See above Status Post TKA (3) Diabetes: Code(s): E11.9 - Type 2 diabetes mellitus without complications Status: Acute Assessment and Plan: Current glucose 98 A1c 5.4 Continue home glimepiride, insulin sliding scale Accu Cheks achs hypoglycemia protocol Trend glucose Adjust therapy as indicated (4) GRIFFIN on CPAP: Code(s): G47.33 - Obstructive sleep apnea (adult) (pediatric); Z99.89 - Dependence on other enabling machines and devices Status: Acute Assessment and Plan: Continue home CPAP with home settings (5) COPD (chronic obstructive pulmonary disease): Code(s): J44.9 - Chronic obstructive pulmonary disease, unspecified Status: Acute Assessment and Plan: Controlled at this time Respiratory status stable with saturation of 94-97 on room air No acute exacerbation noted Continue to trend respiratory status Adjust therapy as indicated (6) Hyperlipidemia: Code(s): E78.5 - Hyperlipidemia, unspecified Status: Acute Assessment and Plan: Continue home rosuvastatin Check LFTs if still in here in the ED (7) Hypertension: Code(s): I10 - Essential (primary) hypertension Status: Acute Assessment and Plan: BP stable at 122/58 Continue home antihypertensives Trend blood pressure Adjust therapy as indicated (8) CAD (coronary artery disease): Code(s): I25.10 - Atherosclerotic heart disease of [place] coronary artery without angina pectoris Status: Acute Assessment and Plan: Continue aspirin plavix and statin Remain stable at this time No complaints of chest pain Time Spent With Patient Time with patient: Greater than 35 minutes Subjective Date/time seen: 11/28/21 0930 Interval history: 11/28/21 Patient is doing ok today. He is still wanting to go home. He is seeming to do well with therapy. He denies chest pain, shortness of breath, nausea, vomiting diarrhea, constipation. His pain is currently 8/10. Patient stated that his pain is been more of a problem than anything. He denies any further complaints. He is ready to go home. He stated that he feels he is capable and able to do this at home. 11/27/2021 0915 Chris Matthews is a 71 year old male with a past medical history of diabetes, HTN, CAD, CHF who is here for an elective TKR of the right knee with Dr. Todd on 11/26/21.? Currently patient is doing ok.? He is experiencing some pain, however seems to be controlled at this time.? He does say that his pain goes up with activity and working with PT and OT.? He also was complaining the chairs little hard however he does get comfortable but it is not related to his knee.? Patient stated that he usually goes to the bathroom in the a.m. however via not done that today.? He denies any chest pain, shortness her breath, nausea, vomiting, diarrhea, constipation, weakness or fatigue, the changes, hearing changes, headache.? He is eating and feels okay.? He stated that he feels comfortable going home today and that his daughter is a nurse is going how to take care of him.? Patient appears stable for discharge on the medical side as well. Review of Systems Review of Systems: All systems reviewed & are unremarkable except as noted in HPI and below Exam Const: General: cooperative, he
[2021-11-28] MEDS: oxyCODONE/ACETAMINOPHEN (*CRX) 5-325 MG TABLET 2 TABLET PO ×2 (09:56→15:59)
[2021-11-28] MEDS: KETOROLAC 15 MG/ML VIAL (*BKC) IV PUSH (10:36)
[2021-11-28 12:04] LABS: Glucose Point of Care 91 mg/dl (65-105)
[2021-11-28 13:50] VITALS: BP 150/80; PULSE 75; RESP 18; TEMP 36.8; O2SAT 97
--- NOTE | 2021-11-28 14:19 | PCCCNOTE ---
On 11/28/21, the student, [Carli Arnold ], provided care and completed [facility] documentation on this patient. I have reviewed the student's documentation and agree with the findings.
--- NOTE | 2021-11-28 14:55 | PM.PNORT ---
Progress Note: A&P Assessment and Plan (1) Status post total right knee replacement: Code(s): Z96.651 - Presence of right artificial knee joint Status: Acute Assessment and Plan: POD 2 DOING WELL WITH GOOD PROGRESS. OK TO DC HOME F/U IN 3 WEEKS Plan POD 2 DOING WELL WITH GOOD PROGRESS. OK TO DC HOME F/U IN 3 WEEKS. Subjective Subjective Date/Time Seen: 11/28/21 14:55 POD 2 DOING WELL. NO CALF PAIN. SOME DIFFICULTY STILL WITH PAIN CONTROL Exam Psych: Other: VSS AFEBRILE DRESSING DRY NV INTACT NEG HOMANS SIGN CALF SOFT NON TENDER Objective Data Vital Signs Vital Signs: Vital Signs - 24 hr 11/27/21 18:22 11/27/21 19:45 11/27/21 20:00 Temperature 36.7 C 36.6 C Pulse Rate 75 66 66 Respiratory Rate 16 16 16 Blood Pressure 122/60 120/55 L Pulse Oximetry 97 98 98 Oxygen Delivery Room Air 11/27/21 23:40 11/28/21 02:46 11/28/21 05:33 Temperature 36.4 C Pulse Rate 60 Respiratory Rate 16 Blood Pressure 122/58 L Pulse Oximetry 99 Oxygen Delivery Room Air Room Air 11/28/21 08:15 11/28/21 13:50 Temperature 36.8 C Pulse Rate 76 75 Respiratory Rate 18 18 Blood Pressure 150/80 H Pulse Oximetry 94 97 Oxygen Delivery Room Air Intake/Output Intake/Output: Intake & Output 11/25/21 11/26/21 11/27/21 11/28/21 23:59 23:59 23:59 23:59 Intake Total 1320 1780 1070 Output Total 925 1750 300 Balance 395 30 770 Meds/Results Medications: Active Medications Generic Name Dose Route Start Last Admin Trade Name Freq PRN Reason Stop Dose Admin Acetaminophen 1,000 mg 11/26/21 16:59 Acetaminophen 500 Mg Tablet PO Q6H PRN Pain Rated 1-3 Amlodipine Besylate 10 mg 11/27/21 09:00 11/28/21 08:15 Amlodipine Besylate 5 Mg Tablet PO 10 mg QAM RAYO Administration Aspirin 325 mg 11/27/21 09:00 11/28/21 08:16 Aspirin 325 Mg Tablet PO 325 mg DAILY RAYO Administration Celecoxib 200 mg 11/26/21 17:00 11/28/21 08:13 Celecoxib 200 Mg Capsule PO 200 mg BIDWM RAYO Administration Clopidogrel Bisulfate 75 mg 11/27/21 09:00 11/28/21 08:13 Clopidogrel Bisulfate 75 Mg Tablet PO 75 mg DAILY RAYO Administration Diazepam 5 mg 11/26/21 16:59 Diazepam (*Crx) 5 Mg Tablet PO Q8H PRN Spasms Diphenhydramine HCl 25 mg 11/26/21 16:59 Diphenhydramine Hcl Inj 50 Mg/Ml Vial IV PUSH Q6H PRN Itching Docusate Sodium 100 mg 11/26/21 17:00 11/28/21 12:33 Docusate Sodium 100 Mg Capsule PO 100 mg TID RAYO Administration Ergocalciferol 50,000 unit 12/01/21 09:00 Ergocalciferol 50,000 Unit Capsule PO Mo@0900 RAYO Fish Oil 2 gm 11/26/21 17:00 11/28/21 08:10 [place] 3 Polyunsat Fatty Acids 1 Gm Cap PO 2 gm BID RAYO Administration Furosemide 20 mg 11/27/21 09:00 11/28/21 08:18 Furosemide 20 Mg Tablet PO 20 mg QAM RAYO Administration Glimepiride 2 mg 11/26/21 18:00 11/27/21 17:56 Glimepiride 2 Mg Tablet PO 12/26/21 17:59 2 mg QPM RAYO Administration Isosorbide Mononitrate 60 mg 11/27/21 09:00 11/28/21 08:17 Isosorbide Mononitrate 60 Mg Tab.Er.24h PO 60 mg QAM RAYO Administration Losartan Potassium 100 mg 11/27/21 09:00 11/28/21 08:13 Losartan Potassium 100 Mg Tablet PO 100 mg QAM RAYO Administration Metoprolol Succinate 100 mg 11/27/21 09:00 11/28/21 08:16 Metoprolol Succinate Ext Rel 100 Mg Tabcr PO 100 mg QAM RAYO Administration Multivitamins Therapeutic 1 tablet 11/27/21 09:00 11/28/21 08:18 Multivitamins Therapeutic Tab (*Bkc) PO 1 tablet DAILY RAYO Administration Naloxone HCl 0.1 mg 11/26/21 16:59 Naloxone Hcl 0.4 Mg/Ml Vial IV PUSH Q2M PRN Opiate Reversal Non-Formulary Medication 1.5 mg 12/03/21 09:00 Dulaglutide [Trulicity] SUB-Q 01/02/22 08:59 WEEKLY [facility] Ondansetron HCl 4 mg 11/26/21 16:59 Ondansetron Inj 4 Mg/2 Ml Vial IV PUSH Q4H PRN Nausea And Vomiting Oxycodone
--- NOTE | 2021-11-28 15:00 | PM.DS ---
DS: Admitting Diagnosis Discharge Date 11/28/21 Admitting Diagnosis RIGHT KNEE DJD DS: Discharge Diagnosis Discharge Diagnosis (1) Status post total right knee replacement: Code(s): Z96.651 - Presence of right artificial knee joint Status: Acute DS: Summary Hospital Course Reason for hospitalization: R TKA Hospital Course: PATIENT WAS ADMITTED S/P RIGHT TOTAL KNEE ARTHROPLASTY FOR POSTOPERATIVE MEDICAL MANAGEMENT, PAIN CONTROL AND MOBILIZATION WITH PHYSICAL AND OCCUPATIONAL THERAPY. THE PATIENT PROGRESSED WELL WITH PT/OT. LABS AND VITALS REMAINED STABLE AND PAIN WELL CONTROLLED. THE PATIENT HAS BEEN CLEARED TO BE DISCHARGED HOME. FOLLOW UP APPOINTMENT SCHEDULED. DISCHARGE INSTRUCTIONS DISCUSSED AT LENGTH WITH THE PATIENT. MEDICATIONS REVIEWED. Status at Discharge Cognitive/behavioral status at discharge: STABLE Time Spent with Patient Time attestation: Total time spent providing and/or coordinating discharge services: 20 MIN DS: Data Data Completed and Pending Labs on day of discharge: Labs from last 24 hours 11/28/21 11/28/21 11/27/21 11:35 07:30 20:23 POC Capillary Glucose 91 122 H 98 11/27/21 16:04 POC Capillary Glucose 99 Procedures/Treatments: R TKA Discharge Plan Discharge Patient Disposition: Home Health Service Discharge Instructions: Post Op Total Knee Replacement Instructions Dr. Eugene Todd [phone] Your dressing will be changed prior to your discharge. You will be sent home with one additional dressing to be changed on post op day 7 by the home health RN. Your tor will be removed on the 14th day after surgery and steri-strips will be placed. Please practice good hand hygiene and do not touch your incision in order to prevent infection. You may shower with your dressing but do not submerge in a bath tub. Do not drive or operate machinery until you are released by Dr. Todd. Do not walk without a walker for any reason until you are released by Dr. Todd. Continue to use your ice machine. Please use a towel or pillow case to protect your skin before applying your ice machine. Do NOT place a pillow under your knee. You may use a pillow from the calf down if needed. This will prevent a flexion contracture postoperatively. You may begin use of your CPM machine at home if you have been given one pre-operatively. DO NOT USE WHILE YOU ARE SLEEPING. Your first post op appointment was sent to you via mail preoperatively. If you have any questions or are unable to make your appointment, please contact our office for scheduling questions. Your medications have been sent to your pharmacy. You have been sent home with pain medication. We have also sent you with a stool softener as narcotics can cause constipation. Please keep this in mind during your postoperative recovery. If you are not experiencing regular bowel movements, please contact our office for further instruction. Please contact our office with any questions/concerns regarding your knee at [phone]. Per Care Coordination: [facility] has been arranged to follow at discharge. [facility] will contact you prior to their first visit. [facility] can be contacted at [phone]. Patient Instructions: Antibiotic Form, Clopidogrel (By mouth) Stand Alone Forms: General Discharge Information Follow-up/Referrals: Eugene Todd MD [Physician] - Keep Reg. Scheduled Appt. Discharge Medications: New oxycodone-acetaminophen 5-325 mg Tablet 1 - 2 tablet PO Q4-6H PRN (Reason: pain) Qty: 56 0RF Continued losartan 100 mg tablet 100 mg PO QAM isosorbide mononitrate 60 mg tablet extended release 24 hr 60 mg PO QAM metoprolol succinate 100 mg tablet extended release 24 hr 100 mg PO QAM furosemide 20 mg tablet 20 mg PO QAM Trulicity 1.5 mg/0.5 mL pen injector 1.5 mg subcut WEEKLY Rx Instructions: MON[place] glimepiride 4 mg
== END 2021-11-28 16:30 | disposition home health service (06) ==
LOC: ANHSURGERY 08:35 → ANH2MED 17:01
PROVIDERS: PCP Internal Medicine; Visit Provider Orthopaedic Surgery
PROC: (CPT 27447; principal; 2021-11-26 11:00)
DX: M17.11 Unilateral primary osteoarthritis, right knee (principal); G89.18 Other acute postprocedural pain; I25.10 Atherosclerotic heart disease of native coronary artery without angina pectoris; I25.2 Old myocardial infarction; I11.0 Hypertensive heart disease with heart failure; I50.9 Heart failure, unspecified; J44.9 Chronic obstructive pulmonary disease, unspecified; E78.5 Hyperlipidemia, unspecified; K21.9 Gastro-esophageal reflux disease without esophagitis; G47.33 Obstructive sleep apnea (adult) (pediatric); M06.9 Rheumatoid arthritis, unspecified; E11.51 Type 2 diabetes mellitus with diabetic peripheral angiopathy without gangrene; Z95.5 Presence of coronary angioplasty implant and graft; Z87.891 Personal history of nicotine dependence; E66.9 Obesity, unspecified; Z68.38 Body mass index [BMI] 38.0-38.9, adult; Z79.02 Long term (current) use of antithrombotics/antiplatelets; Z79.82 Long term (current) use of aspirin; Z79.899 Other long term (current) drug therapy; Z79.84 Long term (current) use of oral hypoglycemic drugs
CPT/HCPCS: 27447; 64447; 36415; 73560; 80048; 80307; 81003; 82040; 82948; 83036; 85025; 85610; 85730; 86850; 86900; 86901; 87081; 97110; 97116; 97161; 97165; 97530; 97535; A9270; C1713; C1776; J0171; J0690; J1885; J2250; J2270; J2405; J2704; J2795; J3010; J7030; J7120